=== PATIENT | female | born 1965 | race Caucasian/White ===

== ENCOUNTER → 2021-02-04 | Outpatient (CLI) | payer OTHER | LOC: M.ULTRA 14:26 | PROVIDERS: ATTEND Family Medicine | DX: S89.91XA Unspecified injury of right lower leg, initial encounter (principal); M25.561 Pain in right knee; M79.661 Pain in right lower leg; X58.XXXA Exposure to other specified factors, initial encounter; Y93.89 Activity, other specified; Y92.89 Other specified places as the place of occurrence of the external cause; Y99.8 Other external cause status ==